=== PATIENT | male | born 1985 | race Caucasian/White ===

== ENCOUNTER → 2017-01-20 | Day surgery (SDC) | payer OTHER ==
[~2017-01-20] MED LIST: Lactated Ringers 1,000 ML IV SCH; Propofol 200 MG/20 ML SDV IV ONE
[2017-01-20 13:29] VITALS: BP 99/58
--- NOTE | 2017-01-23 07:41 | OR ---
DATE OF OPERATION: 01/20/2017 PREOPERATIVE DIAGNOSIS: CHRONIC GASTROESOPHAGEAL REFLUX DISEASE, DYSPHAGIA. POSTOPERATIVE DIAGNOSIS: CHRONIC GASTROESOPHAGEAL REFLUX DISEASE, DYSPHAGIA. SURGEON: Luis Fernando Maria MD PROCEDURE: EGD WITH BIOPSIES X2, KOBE. ANESTHESIA: [employer] due to severe reflux. COMPLICATIONS: None. SPECIMEN: 1. EG junction biopsy x2. 2. Antral KOBE. FINDINGS: 1. Full-length EGD. 2. Mild hiatal hernia with spontaneous GERD. 3. Mild reflux esophagitis. RECOMMENDATIONS: Medical follow up with Dr. Alejandre. INDICATIONS: The patient has been having a longstanding history of chronic reflux-type symptoms. Dr. Alejandre recommended an EGD. His symptoms are worsening. DESCRIPTION OF PROCEDURE: The patient was prepped and draped, placed in the left lateral decubitus position. A lubricated Olympus gastroscope was inserted over a bit and advanced to the cricopharyngeus area and easily intubated in the esophagus. Esophageal lining was benign in its entire course until the Z-line, which was located around 36 to 37 cm. This was associated with a mild sized hiatal hernia with significant amount of spontaneous reflux. There is minimal distal esophagitis present, but a little thickening in and around the Z-line. The two most affected areas were biopsied, but no obvious Garcia's changes seen. There was no stricturing. The scope was advanced in the stomach through the pylorus and into the third portion of the duodenum. The second and third portion of the duodenum along with the duodenal bulb appeared benign. The scope was brought back into the stomach and retroflexed. The upper fundus and cardia were essentially unremarkable. Upon straightening, thorough evaluation of the rest of the gastric lining showed no signs of any peptic ulcer disease, mass, polyps, or otherwise. A CLOtest was obtained. Air was then suctioned. Scope removed without complication. ANG/BOONE /[id number]
== END ==
LOC: CC.SDS 12:03
PROVIDERS: ATTEND Family Medicine
DX: K21.0 Gastro-esophageal reflux disease with esophagitis (principal); Z87.891 Personal history of nicotine dependence
CPT/HCPCS: 43239; 87081; J2704; J7120

== ENCOUNTER 2024-06-27 07:57 | Day surgery (SDC) | payer BC ==
[2024-06-27] MEDS ORDERED: Ketorolac 30 MG/ML SDV ONE (08:30)
[2024-06-27] MEDS ORDERED: Dexamethasone 4 MG/ML SDV ONE (08:30)
[2024-06-27] MEDS ORDERED: Propofol 200 MG/20 ML SDV ONE ×2 (08:30)
[2024-06-27] MEDS ORDERED: Flumazenil 0.1 MG/ML 5 ML MDV ONE (08:30)
[2024-06-27] MEDS ORDERED: Morphine 4 MG/ML VIAL ONE (08:30)
[2024-06-27] MEDS ORDERED: Midazolam 1 MG/ML 2 ML SDV ONE (08:30)
[2024-06-27] MEDS ORDERED: Ondansetron 4 MG/2 ML SDV ONE (08:30)
[2024-06-27] MEDS ORDERED: fentaNYL 50 MCG/ML SDV ONE ×3 (08:30)
[2024-06-27] MEDS ORDERED: Lactated Ringers 1,000 ML IV SCH (08:30)
[2024-06-27] MEDS ORDERED: Lidocaine 2% 20 ML MDV ONE (08:30)
[2024-06-27] MEDS ORDERED: Lidocaine 2% with EPINEPHrine 1:100,000 20 ML MDV INJECT ONE (09:18)
[2024-06-27] MEDS: Lidocaine 2% with EPINEPHrine 1:100,000 20 ML MDV ONE (09:18)
[2024-06-27 11:19] VITALS: BP 114/72; PULSE 60
== END 2024-06-27 11:15 | disposition home or self-care (01) ==
LOC: CC.SDS 07:57
PROVIDERS: ATTEND Surgery
DX: K43.9 Ventral hernia without obstruction or gangrene (principal); F17.200 Nicotine dependence, unspecified, uncomplicated; Z79.899 Other long term (current) drug therapy
CPT/HCPCS: J1100; J1885; J2250; J2270; J2405; J2704; J3010; J3490